=== PATIENT | male | born 1960 | race Caucasian/White ===

== ENCOUNTER → 2016-06-01 | Outpatient (CLI) | payer BC ==
[2016-06-01 09:37] LABS: BASOPHILS % (AUTO) 0 % (0-2); EOSINOPHILS # (AUTO) 0.1 10^3uL; EOSINOPHILS % (AUTO) 0 % (0-4); LYMPHOCYTES # (AUTO) 3.5 X10^3; MEAN CORPUSCULAR HGB CONC 34.7 g/dL (31.0-37.0); MEAN CORPUSCULAR VOLUME 92 FL (80-100); MEAN PLATELET VOLUME 9.8 FL (6.0-9.5); MONOCYTES # (AUTO) 1.2 X10^3; MONOCYTES % (AUTO) 10 % (3-11); NEUTROPHILS # (AUTO) 6.8 X10^3; NEUTROPHILS % (AUTO) 59 % (51-67); PLATELET COUNT 200 10^3uL (150-450); WHITE BLOOD COUNT 11.62 10^3uL (4.0-11.0)
[2016-06-01 09:38] LABS: MEAN CORPUSCULAR HEMOGLOBIN 31.9 PG (26.0-34.0)
[2016-06-01 09:56] LABS: ALBUMIN 4.8 g/dL (3.4-5.0); ANION GAP 16.3 MEQ/L (3-15); CALCULATED IONIZED CALCIUM 4.4 mg/dL (3.8-4.6); TOTAL PROTEIN 8.3 g/dL (6.4-8.5)
[2016-06-08 16:02] LABS: HEP C COPIES ML Not Detected
== END ==
LOC: LAB 09:23
PROVIDERS: ATTEND Nurse Practitioner
DX: B18.2 Chronic viral hepatitis C (principal); Z79.899 Other long term (current) drug therapy
CPT/HCPCS: 36415; 80053; 85025; 85610; 87522

== ENCOUNTER → 2016-06-15 | Outpatient (CLI) | payer BC ==
[2016-06-15 15:58] LABS: BASOPHILS % (AUTO) 0 % (0-2); EOSINOPHILS # (AUTO) 0.1 10^3uL; EOSINOPHILS % (AUTO) 1 % (0-4); LYMPHOCYTES # (AUTO) 3.5 X10^3; MEAN CORPUSCULAR HGB CONC 34.1 g/dL (31.0-37.0); MEAN CORPUSCULAR VOLUME 96 FL (80-100); MONOCYTES # (AUTO) 0.9 X10^3; MONOCYTES % (AUTO) 11 % (3-11); NEUTROPHILS # (AUTO) 3.7 X10^3; NEUTROPHILS % (AUTO) 45 % (51-67); PLATELET COUNT 161 10^3uL (150-450); WHITE BLOOD COUNT 8.15 10^3uL (4.0-11.0)
[2016-06-15 16:01] LABS: MEAN CORPUSCULAR HEMOGLOBIN 32.6 PG (26.0-34.0)
[2016-06-15 17:25] LABS: ALBUMIN 4.2 g/dL (3.4-5.0)
[2016-06-15 17:34] LABS: ANION GAP 13.9 MEQ/L (3-15); CALCULATED IONIZED CALCIUM 4.4 mg/dL (3.8-4.6); TOTAL PROTEIN 7.1 g/dL (6.4-8.5)
[2016-06-20 14:40] LABS: HEP C COPIES ML Detected <15 IU/mL; HEPATITIS C LOG ML <1.2
== END ==
LOC: LAB 15:41
PROVIDERS: ATTEND Family Medicine
DX: B18.2 Chronic viral hepatitis C (principal); Z79.899 Other long term (current) drug therapy
CPT/HCPCS: 36415; 80053; 85025; 85610; 87522

== ENCOUNTER → 2016-07-05 | Outpatient (CLI) | payer BC | LOC: LAB 09:52 | PROVIDERS: ATTEND Nurse Practitioner | DX: E89.0 Postprocedural hypothyroidism (principal) | CPT/HCPCS: 36415; 82330; 84443 ==